=== PATIENT | female | born 1990 | race Caucasian/White ===

== ENCOUNTER 2019-06-27 16:44 | Emergency (ER) | payer OTHER ==
[~2019-06-27] VITALS: Ht 149.9 cm; Wt 79.4 kg
[~2019-06-27 16:44] MED LIST: PRI20 PO
[2019-06-27 17:11] VITALS: Ht 149.9 cm; Wt 79.4 kg
[2019-06-27 20:28] VITALS: BP 169/87
== END 2019-06-27 20:28 | disposition home or self-care (01) ==
LOC: ED 16:44
DX: J18.9 Pneumonia, unspecified organism (principal); G43.909 Migraine, unspecified, not intractable, without status migrainosus; K21.9 Gastro-esophageal reflux disease without esophagitis